=== PATIENT | male | born 1945 ===

== ENCOUNTER 2021-07-21 09:53 | Day surgery (SDC) | payer OTHER ==
[~2021-07-21 09:53] MED LIST: CENTRUM PO; COZAAR100 MG PO; CRESTOR20 MG PO; GABAPE PO; NORVASC2.5 MG PO; PROBIOTIC PO; TOPROL XL50 M1 PO; VIT C PO; VITAMIN D-40010 MCG PO
== END 2021-07-21 17:10 | disposition home or self-care (01) ==
LOC: CIR.AMB 09:53
PROVIDERS: ATTEND Orthopaedic Surgery
DX: M75.122 Complete rotator cuff tear or rupture of left shoulder, not specified as traumatic (principal); M75.22 Bicipital tendinitis, left shoulder; M24.112 Other articular cartilage disorders, left shoulder; G47.33 Obstructive sleep apnea (adult) (pediatric); Z99.89 Dependence on other enabling machines and devices; I10 Essential (primary) hypertension; E78.5 Hyperlipidemia, unspecified; E66.9 Obesity, unspecified